=== PATIENT | female | born 1945 | race Caucasian/White ===

== ENCOUNTER 2024-11-16 21:49 | Inpatient (IN) | payer OTHER, SELFPAY ==
[2024-11-16 14:16] VITALS: BP 150/75
--- NOTE | 2024-11-16 14:39 | ED.GENMED ---
ED Provider Triage
<Sammie Gilliam PA-C - Last Filed: 11/16/24 14:45>
-
Patient seen by provider in Triage?: Seen in Triage
79-year-old female pretty healthy, normally with it went to bed feeling okay and then woke up in the middle the night and threw up 3 times, had some shakes and chills and then felt generalized weakness. The family could not get her out of bed this
morning. She is confused which is new for her. She had no falls. Patient says she just does not feel well.
A medical screening examination has been initiated by a qualified medical provider. Based on the assessment performed at this time, it has been determined that an emergent medical condition may exist and the patient has been informed that further
medical evaluation and possible additional diagnostic testing may be needed.
HPI: This is a medical evaluation conducted in person to initiate diagnostic evaluation and provide initial therapeutics. Please see further documentation by the treating clinician.
GENERAL: Alert , in no apparent distress
ENT: No visible abnormalities
LUNGS: No acute respiratory distress
NEUROLOGICAL: Alert and oriented x 2, cranial nerves intact, strength intact, no visual field cut, patient does have some generalized memory issues, seems to pause and think about words before speaking, no dysarthria, some mild global confusion
about why she is here
SKIN: Skin intact. No visible changes.
MUSCULOSKELETAL: Moving extremities normally
PSYCH: Normal and appropriate interaction.
Patient is confused today after waking up and vomiting several times with some chills, family suspected she had a fever, she is very weak. Her neuroexam is nonfocal, I do not believe this is a stroke but more likely infectious cause for her
confusion. Will place patient in for labs, flu, COVID, EKG and head CT and a UA
History of Present Illness
<Sammie Gilliam PA-C - Last Filed: 11/16/24 14:45>
General
Chief Complaint: Cold/Flu/URI Symptoms
Time Seen by Provider: 11/16/24 16:42
<Sujata Islas PA-C - Last Filed: 11/16/24 22:26>
General
Source: patient and family
Exam Limitations: none
History of Present Illness
History of Present Illness:
79yoF with a history of hypertension and PMR presenting with her for evaluation of generalized weakness. Symptoms began in the middle of the night this morning. Patient reports chills and rigors. No reported fevers. She also feels very
weak and has not been able to get out of bed today. She is not eating or drinking much. She believes she has the flu. states she seemed very weak earlier today and was unable to get out her words while due to her symptoms. She also
reports a mild cough as well as abdominal discomfort. She denies any dysuria, shortness of breath, vomiting, diarrhea. No known sick contacts.
Phy Exam
<Sujata Islas PA-C - Last Filed: 11/16/24 22:26>
Physical Exam
Physical Exam:
Ill-appearing and fatigued, non-toxic
General Physical Exam
General Presentation: no apparent distress
General Skin: warm and dry
General Habitus: normal and elderly
General Mental: alert
ENT Exam
ENT Exam: normocephalic
Cardiovascular Exam
Cardiovascular Exam: regular rate/rhythm
Pulmonary Exam
Pulmonary Exam: lungs clear, no respiratory distress, no rales, no crackles, no rhonchi and no wheezing
Gastrointestinal Exam
Gastrointestinal Exam: soft, non distended and other (+Generalized abdominal tenderness. No rebound or guarding. )
Neurological Exam
Neurological Exam: alert
[place] Coma Scale
Eye Opening: Spontaneous
Verbal Response: Oriented
Motor Response: Obeys Commands
GCS Total Score: 15
Skin Exam
Skin Exam: normal color and warm/dry
Psychiatric Exam
Psychiatric Exam: normal mood/affect
Course
<Sammie Gilliam PA-C - Last Filed: 11/16/24 14:45>
Orders/Labs/Results
Orders:
Orders
11/16/24 14:21
Electrocardiogram (*1) Urgent
Reason for Study: Fatigue / Weakness
EKG- Treatment ONCE
11/16/24 14:32
COVID-19 Antigen Urgent
Source: Nasal Swab
Complete Blood Count/With Diff Urgent
Comprehensive Metabolic Panel Urgent
Lipase Urgent
Comment: ADD ON
Influenza A+B Rapid Molecular Urgent
KRISTINE Source: Nasal Swab
Specimen Description:
11/16/24 14:40
CT Head W/o Iv Contrast Urgent
Comment:
Reason For Exam: confusion
11/16/24 Dinner
NPO
Allow oral meds: Yes
Allow clear liquids: No
11/16/24 16:53
Add On- LAB Urgent
Tests Added?: lipase
CT Abd/pelvis W Iv Cont Urgent
Comment:
Reason For Exam: generalized abd pain, chills
0.9% Sodium Chloride 500 ml [Nss] 500 ml IV BOLUS
CR Chest - 2 Views Urgent
Comment:
Reason For Exam: cough
11/16/24 19:10
Lactate Level [Lactic Acid] Urgent
Troponin I Urgent
Blood Culture Q30M
KRISTINE Source: Blood/Venous
Specimen Description:
Blood Culture Q30M
KRISTINE Source: Blood/Venous
Specimen Description:
11/16/24 19:40
Piperacillin/Tazo 4.5 Gram [Zosyn] 4.5 gram in 100 ml IV NOW
11/16/24 19:47
Acetaminophen [Tylenol] 650 mg PO NOW STA
11/16/24 21:07
Admit/Transfer Patient As Directed
Co-Sign Provider:
Level of Care: Inpatient admission
Assign to:: Telemetry
Physician / Group: Wild Christina
Diagnosis: sepsis, mild diverticulitis, TME and acute ambulatory dysfunction
Reason for Telemetry: Arrhythmia
Date to Stop Telemetry: 11/19/24
Time to Stop Telemetry: 11:00
Reason for Hospitalization: sepsis, mild diverticulitis, TME and acute ambulatory dysfunction
Expected length of stay greater than two midnights?: Yes
ELOS- Estimated Length of Stay in days: 3
I certify the patient meets the requirements for IP care: Yes
PRN Pain Medication Management As Directed
May give lesser potent ordered pain med per pt: Yes
preference::
Protocol:: Medication orders for pain may be administered in a
manner that supports deferring to patient preference
when the pt is:
- Requesting an ordered lesser potent pain medication.
Least to most potent pain medications are defined
as: acetaminophen < NSAID < tramadol < opioids
(morphine, oxycodone, hydromorphone).
- Requesting a lesser dose of the same medication IF
ORDERED.
- Requesting a less intrusive route of administration
if both routes are prescribed by the provider (PO <
IV).
11/16/24 21:08
Code Status As Directed
Resuscitation Status: Full Code
11/16/24 21:20
Urinalysis Reflex To Culture Urgent
Date Specimen was Collected: 11/16/24
Time Specimen was Collected: 16:57
11/16/24 22:00
Flush (0.9% Sodium Chloride) [Flush (Nss)] See Dose Instructions IV PER PROTOCOL
11/16/24 22:17
0.9% Sodium Chloride 1000 ml [Nss] 1,000 ml IV 100 mls/hr
Acetaminophen [Tylenol] 650 mg PO Q4HPRN PRN
Gabapentin [Neurontin] 300 mg PO HS
Piperacillin/Tazo 4.5 Gram [Zosyn] 4.5 gram in 100 ml IV Q6H
11/16/24 22:17
Consult Colorectal Surgery [ColoRectal Surgery Consult] Routine
Consulting Provider: Frankie Ryan
Was physician already notified: Yes
Activity As Directed
Activity Level: With Assistance
Pneumatic Compression Sleeves As Directed
Type: Knee high
Vital Signs As Directed
Frequency: Per unit guidelines
Weight As Directed
Frequency: Once
DX Deep Vein Thrombosis Video Routine
11/17/24 06:00
Basic Metabolic Panel IN AM
Complete Blood Count/No Diff IN AM
11/17/24 08:00
Duloxetine Delayed Release [Cymbalta Delayed Release] 30 mg PO DAILY
Ezetimibe [Zetia] 10 mg PO DAILY
Losartan [Cozaar] 100 mg PO DAILY
Metoprolol Xl [Toprol Xl] 50 mg PO DAILY
calcium carbonate-vitamin D3 [Calcium 600 + D(3)] 1 tablet PO DAILY
11/19/24 11:00
DC Protocol for Telemetry ONCE
Abnormal Lab Results
11/16/24
14:32
WBC 16.2 H 10^3/uL
(4.8-10.8)
Abs Immat Gran (auto) 0.1 H 10^3/uL
(0-0.05)
Absolute Neuts (auto) 14.1 H 10^3/uL
(1.4-6.5)
Absolute Lymphs (auto) 0.8 L 10^3/uL
(1.2-3.4)
Absolute Monos (auto) 1.2 H 10^3/uL
(0.1-0.6)
Immature Gran % 0.6 H %
(0-0.5)
Neutrophils % 86.5 H %
(42.2-75.2)
Lymphocytes % 5.2 L %
(20.5-51.1)
Carbon Dioxide 21 L mmol/L
(22-30)
Glucose 119 H mg/dl
(70-99)
AST 69 H U/L
(14-36)
ALT 79 H U/L
(0-35)
11/16/24 14:32
11/16/24 14:32
Vital Signs
Initial and Last Documented VS:
Initial Vital Signs
Temp Pulse Resp BP Pulse Ox
98.5 F 103 18 150/75 98
11/16/24 14:16 11/16/24 14:16 11/16/24 14:16 11/16/24 14:16 11/16/24 14:16
Last Documented Vital Signs
Temp Pulse Resp BP Pulse Ox
101.4 F H 98 28 131/61 97
11/16/24 18:25 11/16/24 17:42 11/16/24 17:42 11/16/24 21:10 11/16/24 17:42
<Sujata Islas PA-C - Last Filed: 11/16/24 22:26>
Orders/Labs/Results
Orders:
Orders
11/16/24 14:21
Electrocardiogram (*1) Urgent
Reason for Study: Fatigue / Weakness
EKG- Treatment ONCE
11/16/24 14:32
COVID-19 Antigen Urgent
Source: Nasal Swab
Complete Blood Count/With Diff Urgent
Comprehensive Metabolic Panel Urgent
Lipase Urgent
Comment: ADD ON
Influenza A+B Rapid Molecular Urgent
KRISTINE Source: Nasal Swab
Specimen Description:
11/16/24 14:40
CT Head W/o Iv Contrast Urgent
Comment:
Reason For Exam: confusion
11/16/24 Dinner
NPO
Allow oral meds: Yes
Allow clear liquids: No
11/16/24 16:53
Add On- LAB Urgent
Tests Added?: lipase
CT Abd/pelvis W Iv Cont Urgent
Comment:
Reason For Exam: generalized abd pain, chills
0.9% Sodium Chloride 500 ml [Nss] 500 ml IV BOLUS
CR Chest - 2 Views Urgent
Comment:
Reason For Exam: cough
11/16/24 19:10
Lactate Level [Lactic Acid] Urgent
Troponin I Urgent
Blood Culture Q30M
KRISTINE Source: Blood/Venous
Specimen Description:
Blood Culture Q30M
KRISTINE Source: Blood/Venous
Specimen Description:
11/16/24 19:40
Piperacillin/Tazo 4.5 Gram [Zosyn] 4.5 gram in 100 ml IV NOW
11/16/24 19:47
Acetaminophen [Tylenol] 650 mg PO NOW STA
11/16/24 21:07
Admit/Transfer Patient As Directed
Co-Sign Provider:
Level of Care: Inpatient admission
Assign to:: Telemetry
Physician / Group: Wild Christina
Diagnosis: sepsis, mild diverticulitis, TME and acute ambulatory dysfunction
Reason for Telemetry: Arrhythmia
Date to Stop Telemetry: 11/19/24
Time to Stop Telemetry: 11:00
Reason for Hospitalization: sepsis, mild diverticulitis, TME and acute ambulatory dysfunction
Expected length of stay greater than two midnights?: Yes
ELOS- Estimated Length of Stay in days: 3
I certify the patient meets the requirements for IP care: Yes
PRN Pain Medication Management As Directed
May give lesser potent ordered pain med per pt: Yes
preference::
Protocol:: Medication orders for pain may be administered in a
manner that supports deferring to patient preference
when the pt is:
- Requesting an ordered lesser potent pain medication.
Least to most potent pain medications are defined
as: acetaminophen < NSAID < tramadol < opioids
(morphine, oxycodone, hydromorphone).
- Requesting a lesser dose of the same medication IF
ORDERED.
- Requesting a less intrusive route of administration
if both routes are prescribed by the provider (PO <
IV).
11/16/24 21:08
Code Status As Directed
Resuscitation Status: Full Code
11/16/24 21:20
Urinalysis Reflex To Culture Urgent
Date Specimen was Collected: 11/16/24
Time Specimen was Collected: 16:57
11/16/24 22:00
Flush (0.9% Sodium Chloride) [Flush (Nss)] See Dose Instructions IV PER PROTOCOL
11/16/24 22:17
0.9% Sodium Chloride 1000 ml [Nss] 1,000 ml IV 100 mls/hr
Acetaminophen [Tylenol] 650 mg PO Q4HPRN PRN
Gabapentin [Neurontin] 300 mg PO HS
Piperacillin/Tazo 4.5 Gram [Zosyn] 4.5 gram in 100 ml IV Q6H
11/16/24 22:17
Consult Colorectal Surgery [ColoRectal Surgery Consult] Routine
Consulting Provider: Frankie Ryan
Was physician already notified: Yes
Activity As Directed
Activity Level: With Assistance
Pneumatic Compression Sleeves As Directed
Type: Knee high
Vital Signs As Directed
Frequency: Per unit guidelines
Weight As Directed
Frequency: Once
DX Deep Vein Thrombosis Video Routine
11/17/24 06:00
Basic Metabolic Panel IN AM
Complete Blood Count/No Diff IN AM
11/17/24 08:00
Duloxetine Delayed Release [Cymbalta Delayed Release] 30 mg PO DAILY
Ezetimibe [Zetia] 10 mg PO DAILY
Losartan [Cozaar] 100 mg PO DAILY
Metoprolol Xl [Toprol Xl] 50 mg PO DAILY
calcium carbonate-vitamin D3 [Calcium 600 + D(3)] 1 tablet PO DAILY
11/19/24 11:00
DC Protocol for Telemetry ONCE
Abnormal Lab Results
11/16/24
14:32
WBC 16.2 H 10^3/uL
(4.8-10.8)
Abs Immat Gran (auto) 0.1 H 10^3/uL
(0-0.05)
Absolute Neuts (auto) 14.1 H 10^3/uL
(1.4-6.5)
Absolute Lymphs (auto) 0.8 L 10^3/uL
(1.2-3.4)
Absolute Monos (auto) 1.2 H 10^3/uL
(0.1-0.6)
Immature Gran % 0.6 H %
(0-0.5)
Neutrophils % 86.5 H %
(42.2-75.2)
Lymphocytes % 5.2 L %
(20.5-51.1)
Carbon Dioxide 21 L mmol/L
(22-30)
Glucose 119 H mg/dl
(70-99)
AST 69 H U/L
(14-36)
ALT 79 H U/L
(0-35)
11/16/24 14:32
11/16/24 14:32
Vital Signs
Initial and Last Documented VS:
Initial Vital Signs
Temp Pulse Resp BP Pulse Ox
98.5 F 103 18 150/75 98
11/16/24 14:16 11/16/24 14:16 11/16/24 14:16 11/16/24 14:16 11/16/24 14:16
Last Documented Vital Signs
Temp Pulse Resp BP Pulse Ox
101.4 F H 98 28 131/61 97
11/16/24 18:25 11/16/24 17:42 11/16/24 17:42 11/16/24 21:10 11/16/24 17:42
<Sujata Islas PA-C - Last Filed: 11/16/24 22:26>
MDM/Problems Addressed
Differential Diagnosis Includes:
79yoF here with chills, rigors, and weakness that began early this morning. Feels like she has the flu. Hx of PMR on immunosuppressants. Temp 98.5 in triage. HR 103. She appears fatigued but is non-toxic. There is generalized abdominal tenderness
noted. Differential diagnosis includes but is not limited to: viral illness, appendicitis, diverticulitis, UTI, pneumonia, bacteremia
Initial ED plan: Basic labs and viral testing obtained in triage. Leukocytosis noted with a white count of 16. COVID/flu swab negative. Will check lactate, blood cultures, UA, chest x-ray, and CT abdomen. IV fluid bolus ordered.
<Sujata Islas PA-C - Last Filed: 11/16/24 22:26>
*EKG
Interpreted by ED Provider?: Yes
EKG Intrepretation Date: 11/16/24
Heart Rate: 101
Rate: tachycardiac
Rhythm: sinus
[place]: normal axis
Interval: normal interval
QRS Pattern: normal QRS
Ischemia: no ischemia
*Critical Care Note
Total Time (30-74mins, 75-104mins- exclusive of procedures): Not Applicable
<Sujata Islas PA-C - Last Filed: 11/16/24 22:26>
Update Note
Update Note:
Lactate within normal limits. CT abdomen shows mild acute diverticulitis. CXR is clear. UA still pending. Patient spiked a fever of 101.4 during ED stay. Patient meeting sepsis criteria. IV Zosyn ordered and patient admitted for further
management.
ED Attending Note
<Sammie Gilliam PA-C - Last Filed: 11/16/24 14:45>
-
Portions of this chart may have been created with voice recognition software.� Occasional wrong word or��sound alike� substitutions may have occurred due to the inherent limitations of voice recognition software.
Discharge Plan
Departure
Patient Disposition: Admit
Date of Disposition: 11/16/24
Time of Disposition: 19:48
Presentation/result/management discussed w/ accepting MD/DO: Hospitalist
Discharge Problem:
Sepsis, Acute diverticulitis
Interventions
Interventions:
*Risk Screen - Suicide Last Done: 11/16/24 14:16
*Neglect/Abuse Screening Last Done: 11/16/24 14:16
ED- Fall Risk Assessment Last Done: 11/16/24 16:35
ED- Pulmonary Assessment Last Done: 11/16/24 16:35
[2024-11-16 14:52] LABS: % Basophils 0.2 % (0-2); % Eosinophils 0.3 % (0-6); % Immature Granulocytes 0.6 % (0-0.5); % Lymphocytes 5.2 % (20.5-51.1); % Monocytes 7.2 % (1.7-9.3); % Neutrophils 86.5 % (42.2-75.2); Absolute Eosinophils 0.1 10^3/uL (0-0.7); Absolute Immature Granulocytes 0.1 10^3/uL (0-0.05); Absolute Lymphocytes 0.8 10^3/uL (1.2-3.4); Absolute Monocytes 1.2 10^3/uL (0.1-0.6); Absolute Neutrophils 14.1 10^3/uL (1.4-6.5); Hematocrit 41.4 % (37.0-47.0); Hemoglobin 13.7 g/dL (12.0-16.0); Mean Corp Hgb Conc. 33.1 g/dL (33.0-37.0); Mean Corpuscular Hgb 27.8 pg (27.0-31.0); Mean Corpuscular Volume 84.1 fL (81.0-99.0); Mean Platelet Volume 9.4 fL (7.4-10.4); Nucleated Red Blood Cells % 0 %; Platelet Count 254 10^3/uL (130-400); Red Blood Cell Count 4.92 10^6/uL (4.20-5.40); Red Cell Dist. Width 13.6 % (11.5-14.5); White Blood Cell Count 16.2 10^3/uL (4.8-10.8)
[2024-11-16 15:03] LABS: ALT (SGPT) 79 U/L (0-35); AST (SGOT) 69 U/L (14-36); Albumin 4.2 g/dl (3.5-5.0); Alkaline Phosphatase 69 U/L (38-126); Blood Urea Nitrogen 16 mg/dl (7-17); Calcium 8.9 mg/dl (8.4-10.2); Carbon Dioxide 21 mmol/L (22-30); Chloride 107 mmol/L (98-107); Glucose 119 mg/dl (70-99); Sodium 138 mmol/L (135-145); Total Bilirubin 1.2 mg/dl (0.2-1.3); Total Protein 7.4 g/dl (6.3-8.2); eGFR > 60.00
[2024-11-16 15:21] LABS: COVID-19 Antigen Negative (Negative)
[2024-11-16 16:33] VITALS: BP 126/55
[2024-11-16 16:35] VITALS: BMI 26.2
[2024-11-16 17:00] VITALS: BP 116/57
[2024-11-16] MEDS: NSS 500 IV (17:01)
[2024-11-16 17:35] LABS: Lipase 146 U/L (23-300)
[2024-11-16 19:39] LABS: Lactic Acid 1.4 mmol/L (0.7-2.0)
[2024-11-16] MEDS: ZOSYN 100 IV (19:49)
[2024-11-16 19:52] LABS: Troponin I < 0.012 ng/ml
[2024-11-16] MEDS: TYLENOL 650 MG PO (19:52)
--- NOTE | 2024-11-16 20:18 | HPS.HSE ---
Family Physician
-
Family Physician:
Chief Complaint
-
fever, chills and generalized weakness
History of Present Illness
Patient is a 79-year-old female with past medical history significant for hypertension, hyperlipidemia and polymyalgia rheumatica who presented to [facility] ED for evaluation of fever, chills and generalized weakness. Patient reports she
was at baseline yesterday and noticed fever and chills overnight with weakness and confusion when she woke this morning. She denies dizziness, headaches, falls, cough, shortness of breath, chest pain, nausea, vomiting, constipation, diarrhea or
urinary symptoms. Patient with memory issues and has a hard time remembering, ED notes indicate patient had 3 episodes of emesis last night and family unable to get out of bed this morning. They noted that confusion is new to patient.
Medical History
Past Medical History
Past Medical History: Reports Other
Additional Past Medical History:
hypertension
hyperlipidemia
polymyalgia rheumatica
mitral regurgitation
Past Surgical History: Reports Other
Additional Past Surgical History:
lumbar laminectomy 10/07
bilateral cataract extractions
cholecystectomy 11/2023
Social History
Tobacco: Non-smoker
Alcohol: None
Drug: None
Personal:
Living: With Family
Employment: Retired
Family History
Family History: Not pertinent
Allergies / Home Medications
Allergies reflects when Allergies were last updated in [facility].
Home Medications with original date entered in [facility]
Allergy/Medication List:
Allergies
Allergy/AdvReac Type Severity Reaction Status Date / Time
.can't remember Allergy Unknown Uncoded 11/16/24 14:20
Home Medications
azathioprine 50 mg tablet 50 mg PO DAILY 11/16/24
calcium 600 mg (as carbonate)-vitamin D3 10 mcg (400 unit) tablet (Calcium 600 + D(3)) 1 tab PO DAILY 11/16/24
denosumab 60 mg/mL subcutaneous syringe (Prolia) 60 mg SC [id number] 11/16/24
duloxetine 30 mg capsule,delayed release 30 mg PO DAILY 11/16/24
ezetimibe 10 mg tablet 10 mg PO DAILY 11/16/24
gabapentin 300 mg capsule 300 mg PO HS 11/16/24
losartan 100 mg tablet 100 mg PO DAILY 11/16/24
metoprolol succinate 50 mg tablet,extended release 24 hr 50 mg PO DAILY 11/16/24
prednisone 1 mg tablet 3 mg PO DAILY 11/16/24
Review of Systems
-
History Source: Patient
Constitutional: Reports Fever and Chills
EENT: Reports No Symptoms
Respiratory: Reports No Symptoms
Cardiac: Reports No Symptoms
Abdomen/GI: Reports No Symptoms
: Reports No Symptoms
Musculoskeletal: Reports No Symptoms
Skin: Reports No Symptoms
Neurological: Reports No Symptoms
Endocrine: Reports No Symptoms
Hematologic/Lymphatic: Reports No Symptoms
Psych: Reports No Symptoms
Physical Exam
Vital Signs
Vital Signs
Temp Pulse Resp BP Pulse Ox
101.4 F H 100 21 116/57 97
11/16/24 18:25 11/16/24 17:30 11/16/24 17:30 11/16/24 17:00 11/16/24 17:30
Physical Exam
General: Well Developed, Well Nourished, No Apparent Distress, Comfortable and Conversant
HEENT: NormoCephalic, Moist mucous membranes, Atraumatic, [place] Conjunctivae, Nose Appears Normal and Ears Appear Normal
Respiratory: Clear and Non Labored Respirations
Cardiac: S1/S2, Regular Rhythm and Murmur; No Rub or Gallop
Breast: Deferred by me
GI: Soft, Non Tender, Non Distended and Normal Bowel Sounds; No Organomegaly
Rectal: Deferred by Provider
Genito-urinary: Deferred by me
Musculoskeletal: No Clubbing, No Cyanosis and No Edema
Skin: Warm and IV/Catheter Site; No Rash
Neuro: Awake, Alert, Nonfocal/grossly intact and Other (observed mild memory issues, pauses before answering and often says she does not remember, mild confusion despite orientation x3)
Psych: Calm and Intact Judgment/Insight
Laboratory Results
-
11/16/24 14:32
11/16/24 14:32
Laboratory Results
Lactic Acid 1.4 mmol/L (0.7-2.0) 11/16/24 19:10
Total Bilirubin 1.2 mg/dl (0.2-1.3) 11/16/24 14:32
AST 69 U/L (14-36) H 11/16/24 14:32
ALT 79 U/L (0-35) H 11/16/24 14:32
Alkaline Phosphatase 69 U/L (38-126) 11/16/24 14:32
Troponin I < 0.012 ng/ml 11/16/24 19:10
Lipase 146 U/L (23-300) 11/16/24 14:32
Data Reviewed
-
Diagnostic Radiology: Report Reviewed by me (CXR: No acute cardiopulmonary process.)
CT Scan: Report Reviewed by me (Abd/Pel: Mild acute sigmoid diverticulitis. No CT evidence for perforation or pericolonic abscess.; Head: No acute intracranial abnormality.)
Medical Tests (Nuc Med, Echo, EKG etc): Report Reviewed by me (EKG: SINUS TACHYCARDIA)
Lab Data: Labs Reviewed by me (WBC 16.2, )
Impression/Plan
-
IMPRESSION/PLAN:
#sepsis 2/2 mild diverticulitis
#associated TME and acute ambulatory dysfunction
WBC 16.2, Lactic 1.4
Covid: negative
Influenza: negative
CXR: No acute cardiopulmonary process.
Head CT: No acute intracranial abnormality.
Abd/Pelvis CT: Mild acute sigmoid diverticulitis. No CT evidence for perforation or pericolonic abscess.
EKG: SINUS TACHYCARDIA
- Admit to telemetry
- IV zosyn
- NPO
- IVF
- Consult Colorectal Surgery
#essential hypertension
- continue losartan and metoprolol
#hyperlipidemia
- continue ezetimibe
#polymyalgia rheumatica
- hold azathioprine
- continue prednisone to IV equivalent with increase for increased stress
#mitral regurgitation
ECHO (05/05/2023): 1. Mild left atrial enlargement.
2. Posterior mitral valve leaflet prolapse with at least moderate eccentric mitral regurgitation
3. Normal left and right ventricular systolic function
4. Normal mildly elevated right ventricular systolic pressure.
#Hx lumbar laminectomy
- continue gabapentin and duloxetine
Code status: full code
DVT prophylaxis: SCDs
--- NOTE | 2024-11-16 20:35 | W.PN.UPDATE ---
Update Note
Progress Note Update
This note serves as an addendum to the H&P by assembler [employer] AZIZA
Pebbles Sabillon
HPI
79F HX PMR on chronic immunodepressants( AZT and chr PO prednisone ) HTN, chr LBP s/p back surgery on Gabapentin seen at ER:
- reports woke up in the middle the night and vomited 3 times
- associated with chills & rigors and then felt generalized weakness.
- The family could not get her out of bed this morning.
- She is confused which is new for her.
- Denied falls
PHX; see above
Vital Signs
Temp Pulse Resp BP Pulse Ox
101.4 F H 100 21 116/57 97
11/16/24 18:25 11/16/24 17:30 11/16/24 17:30 11/16/24 17:00 11/16/24 17:30
PE
Gen: not toxic looking
HEENT: anicteric
Neck: supple
Lungs: CTA
Cor: RRR . No murmur
Abdomen: soft , tender abdomen. No guarding
COMPUTER NETWORKING INSTRUCTOR: AAO3
MS: no edema
Psych: nl affect and mood
Laboratory Tests
11/16/24 11/16/24
14:32 19:10
WBC 16.2 H
Carbon Dioxide 21 L
Creatinine 0.7
eGFR > 60.00
AST 69 H
ALT 79 H
Troponin I < 0.012
SARS-CoV-2 Antigen Negative
CXR: No acute cardiopulmonary process
CT AP W IV contrast
- Mild acute sigmoid diverticulitis.
- No CT evidence for perforation or pericolonic abscess.
CT Head W/o Iv Contrast
- No acute intracranial abnormality.
ASSESSMENT & PLAN
Sepsis with presumed due to mild diverticulitis
Chills & rigors evaluate for bacteremia
Associated with TME , acute ambulatory dysfunction due to weakness
- Fever 101.4, WBC 16, lactate normal
- COVID/flu negative
- Pending UA
- NEG CXR clear
- CT abdomen shows mild diverticulitis
- BCx sent
- Agree with empiric Zosyn
- NPO except meds and IVF
- CRS consult
HX PMR on Immunodepressants( AZT and chr PO prednisone 3 mg daily )
- Hold AZT
- c/w equivalent dose for PO prednisone 3mg daily = IV Hydrocortisone 12mg but will give more IV HC 25 mg daily for additional stress
Benign HTN
-/w Losartan & Metoprolol
HLD
- on Ezetimibe
HX chr LBP s/p back surgery on Gabapentin and Duloxetine
DVT Px: SCD
Full code
IP TLM
[2024-11-16 21:10] VITALS: BP 131/61
[2024-11-16 22:26] VITALS: BP 141/68; BMI 25.4
[2024-11-16] MEDS: NSS 1000 IV (22:37)
[2024-11-16] MEDS: NEURONTIN 300 MG PO (22:37)
[2024-11-17] MEDS: ZOSYN 100 IV ×4 (02:00→20:25)
[2024-11-17 03:45] VITALS: BP 140/63
[2024-11-17 07:30] VITALS: BP 136/62
[2024-11-17 07:49] LABS: Hematocrit 40.3 % (37.0-47.0); Hemoglobin 12.7 g/dL (12.0-16.0); Mean Corp Hgb Conc. 31.5 g/dL (33.0-37.0); Mean Corpuscular Hgb 27.4 pg (27.0-31.0); Mean Corpuscular Volume 86.9 fL (81.0-99.0); Mean Platelet Volume 9.5 fL (7.4-10.4); Platelet Count 213 10^3/uL (130-400); Red Blood Cell Count 4.64 10^6/uL (4.20-5.40); Red Cell Dist. Width 13.7 % (11.5-14.5); White Blood Cell Count 12.5 10^3/uL (4.8-10.8)
[2024-11-17 08:23] LABS: Blood Urea Nitrogen 14 mg/dl (7-17); Calcium 7.7 mg/dl (8.4-10.2); Carbon Dioxide 21 mmol/L (22-30); Chloride 108 mmol/L (98-107); Estimated Creatinine Clearance 47 ml/min; Glucose 88 mg/dl (70-99); Potassium 3.8 mmol/L (3.5-5.1); Sodium 137 mmol/L (135-145); eGFR > 60.00
[2024-11-17] MEDS: CYMBALTA DELAYED RELEASE 30 MG PO (08:29)
[2024-11-17] MEDS: ZETIA 10 MG PO (08:29)
[2024-11-17] MEDS: OSCAL 500 + D 500 MG PO (08:29)
[2024-11-17] MEDS: COZAAR 100 MG PO (08:31)
[2024-11-17] MEDS: TOPROL XL 50 MG PO (08:31)
[2024-11-17 09:19] LABS: ALT (SGPT) 61 U/L (0-35); AST (SGOT) 46 U/L (14-36); Albumin 3.2 g/dl (3.5-5.0); Alkaline Phosphatase 60 U/L (38-126); Direct Bilirubin 0.3 mg/dl (0.0-0.4); Total Bilirubin 1.5 mg/dl (0.2-1.3)
[2024-11-17] MEDS: NSS 1000 IV ×2 (09:53→20:24)
--- NOTE | 2024-11-17 10:45 | CON.CRS ---
Consultation
-
Date/Time Consultation Requested: 11/16/2024, 22:17
Date/Time Consultation Performed: 11/17/2024, 08:30
Requesting Provider: Pebbles Sabillon
Performing Provider: Frankie Ryan MD
Reason for Consultation: diverticulitis
Medical History
-
Chief Complaint: vomiting/confusion
History of Present Illness:
79-year-old female with a past medical history of polymyalgia rheumatica, hypertension, and hyperlipidemia presents to [facility] complaining of diarrhea, vomiting, and confusion. She developed fevers and chills two nights ago and weakness
and confusion. This has never happened to her before. Per ER note, the family had noticed her vomit 3 times but the patient does not recall. The patient states she feels much improved today. On arrival to the ER her WBC was 16.2. Today is 12.5.
She had a fever of 101.4. CT of the abdomen and pelvis shows mild acute sigmoid diverticulitis. The patient states that she has never had diverticulitis before. She denies a family history of rectal or colon cancer. Her last colonoscopy was
years ago and there were polyps. She is not sure the name of the practice but it was somewhere near [place]. She is due again in April. Given the findings above, we have been consulted for further surgical opinion.
Past Medical History
Past Medical History: HTN, Hypercholesterolemia and Other (polymyalgia rheumatica, mitral regurgitation )
Past Surgical History: Other (lumbar laminectomy 10/07, bilateral cataract extractions, cholecystectomy 11/2023 )
Social History
Tobacco: Non-Smoker
Alcohol: None
Drug: None
Family History
Family History: Reviewed & Not Pertinent
Allergies / Home Medications
Allergy/AdvReac Type Severity Reaction Status Date / Time
atorvastatin Allergy LIVER Verified 11/16/24 22:23
FUNCTIONS
ABNORMAL
quinine Allergy Unknown Verified 11/16/24 22:23
�Medication �Instructions �Recorded �Confirmed �Type
azathioprine 50 mg tablet 50 mg PO DAILY polymyalgia 11/16/24 11/16/24 History
rheumatica
calcium 600 mg (as 1 tab PO DAILY Supplement 11/16/24 11/16/24 History
carbonate)-vitamin D3 10 mcg (400
unit) tablet (Calcium 600 + D(3))
denosumab 60 mg/mL subcutaneous 60 mg SC [id number] polymyalgia 11/16/24 11/16/24 History
syringe (Prolia) rheumatica
duloxetine 30 mg capsule,delayed 30 mg PO DAILY polymyalgia 11/16/24 11/16/24 History
release rheumatica
ezetimibe 10 mg tablet 10 mg PO DAILY High Cholesterol 11/16/24 11/16/24 History
gabapentin 300 mg capsule 300 mg PO HS polymyalgia rheumatica 11/16/24 11/16/24 History
losartan 100 mg tablet 100 mg PO DAILY Blood Pressure 11/16/24 11/16/24 History
metoprolol succinate 50 mg 50 mg PO DAILY Blood Pressure 11/16/24 11/16/24 History
tablet,extended release 24 hr
prednisone 1 mg tablet 3 mg PO DAILY polymyalgia 11/16/24 11/16/24 History
rheumatica
Review of Systems
-
History Source: Patient
Constitutional: Fever, Fatigue and Chills
Abdomen/GI: Vomiting
A 10 point review of systems was completed, and was negative except as per HPI.
Physical Exam
Vital Signs
Temp 97.6 F 11/17/24 07:30
Pulse 73 11/17/24 08:31
Resp Rate 18 11/17/24 07:30
Blood pressure 114/75 11/17/24 08:31
SaO2 97 11/17/24 10:00
11/16/24 11/17/24 11/18/24
06:59 06:59 06:59
Actual Weight 62.851 kg
Body Mass Index (BMI) 25.4
Lab Results / Allergies
11/17/24 07:08
11/17/24 07:08
WBC 12.5 10^3/uL (4.8-10.8) H 11/17/24 07:08
Hgb 12.7 g/dL (12.0-16.0) 11/17/24 07:08
Hct 40.3 % (37.0-47.0) 11/17/24 07:08
Plt Count 213 10^3/uL (130-400) 11/17/24 07:08
Abs Immat Gran (auto) 0.1 10^3/uL (0-0.05) H 11/16/24 14:32
Neutrophils % 86.5 % (42.2-75.2) H 11/16/24 14:32
Allergy/AdvReac Type Severity Reaction Status Date / Time
atorvastatin Allergy LIVER Verified 11/16/24 22:23
FUNCTIONS
ABNORMAL
quinine Allergy Unknown Verified 11/16/24 22:23
Physical Exam
General: Well Developed, Well Nourished and No Apparent Distress
GI: Soft, Non Distended and Tender (LLQ - mild)
Skin: Warm and Dry
Neuro: AO x 3
Psych: Calm
Data Reviewed
-
CT Scan: Image Personally Visualized and interpreted, Report Reviewed by me and Discussed with Patient
Labs: Labs Reviewed by me, Discussed with Physician and Discussed with Patient
Old Records: Reviewed
Assessment / Plan
-
Assessment: 79-year-old female with first attack of sigmoid diverticulitis, uncomplicated
Plan:
-Advance diet to full liquids. Recommend advance to low reside if tolerating fulls today.
-Continue IV fluids
-Due for scope in April and patient will follow-up with her outpatient GI doctor
-No plans for surgery at this time. Will sign off. Please contact us if surgical issues arise.
[2024-11-17 11:03] VITALS: BP 131/88
[2024-11-17] MEDS: ZOFRAN 4 MG IV (12:09)
--- NOTE | 2024-11-17 12:16 | W.PN.HOSP.TC ---
Today's Communication/Plan
-
Monitor vital signs see plan
Still with abdominal symptoms, maintain n.p.o.
Continue with fluids
Continue antibiotics
Pain control
Assessment / Plan
Assessment / Plan
General: Well Developed, Well Nourished, No Apparent Distress, Comfortable and Conversant
HEENT: NormoCephalic, Moist mucous membranes, Atraumatic, Roma Conjunctivae
Respiratory: Clear and Non Labored Respirations
Cardiac: S1/S2, Regular Rhythm and Murmur; No Rub or Gallop
GI: Soft, Non Tender, Non Distended and Normal Bowel Sounds
Musculoskeletal: No Edema
Neuro: Awake, Alert
Psych: Calm and Intact Judgment/Insight
sepsis 2/2 acute diverticulitis
#associated TME and acute ambulatory dysfunction
Abd/Pelvis CT: Mild acute sigmoid diverticulitis. No CT evidence for perforation or pericolonic abscess.
Continue with IV Zosyn
Maintain n.p.o.
IVF
Colorectal surgery following
Follow fever curve
Blood culture pending
essential hypertension
- continue losartan and metoprolol
hyperlipidemia
- continue ezetimibe
polymyalgia rheumatica
- azathioprine
On low-dose p.o. prednisone
Mild LFT elevation
Monitor
mitral regurgitation
ECHO (05/05/2023): 1. Mild left atrial enlargement.
2. Posterior mitral valve leaflet prolapse with at least moderate eccentric mitral regurgitation
3. Normal left and right ventricular systolic function
4. Normal mildly elevated right ventricular systolic pressure.
Hx lumbar laminectomy
- continue gabapentin and duloxetine
Code status: full code
DVT prophylaxis: SCDs
Anticipated Discharge: > 48 hours
Subjective/Interval History
-
Date of Service: November 17, 2024
has pain and nausea
Objective Data
-
Labs:
Laboratory Results
11/17/24 11/17/24
07:08 08:30
WBC 12.5 H
Hgb 12.7
Hct 40.3
Plt Count 213
Sodium 137
Potassium 3.8
Chloride 108 H
Carbon Dioxide 21 L
BUN 14
Creatinine 0.8
Glucose 88
Calcium 7.7 L
Total Bilirubin 1.5 H Cancelled
AST 46 H Cancelled
ALT 61 H Cancelled
Alkaline Phosphatase 60 Cancelled
Vital Signs:
Vital Signs
Temp Pulse Resp BP Pulse Ox
97.7 F 90 18 131/88 97
11/17/24 11:03 11/17/24 11:03 11/17/24 11:03 11/17/24 11:03 11/17/24 11:03
[2024-11-17 15:13] VITALS: BP 131/63
--- NOTE | 2024-11-17 16:47 | CM ---
Alert awake oriented patient who lives with her Dalton who lives in a 1 story home with 1 steps to enter. She is independent in all activities of daily living.Offered VN she declined.
No adaptive devices
Never had VN/SNF
Pharmacy [facility]
PCP Dr Rosales
PLAN Home no needs
[2024-11-17 19:32] VITALS: BP 142/72
[2024-11-17] MEDS: NEURONTIN 300 MG PO (21:15)
[2024-11-17 23:41] VITALS: BP 130/72
[2024-11-18] VITALS (8 sets, daily range): BP systolic 114–136; BP diastolic 52–70; PULSE 68; O2SAT 95
[2024-11-18] MEDS: ZOSYN 100 IV ×4 (02:06→21:07)
[2024-11-18] MEDS: NSS 1000 IV (05:57)
[2024-11-18 06:18] LABS: % Basophils 0.1 % (0-2); % Eosinophils 1.3 % (0-6); % Immature Granulocytes 0.5 % (0-0.5); % Lymphocytes 9.1 % (20.5-51.1); % Monocytes 7.8 % (1.7-9.3); % Neutrophils 81.2 % (42.2-75.2); Absolute Eosinophils 0.1 10^3/uL (0-0.7); Absolute Immature Granulocytes 0.1 10^3/uL (0-0.05); Absolute Lymphocytes 0.9 10^3/uL (1.2-3.4); Absolute Monocytes 0.8 10^3/uL (0.1-0.6); Absolute Neutrophils 8.2 10^3/uL (1.4-6.5); Hematocrit 37.8 % (37.0-47.0); Hemoglobin 12.1 g/dL (12.0-16.0); Mean Corpuscular Hgb 27.3 pg (27.0-31.0); Mean Corpuscular Volume 85.3 fL (81.0-99.0); Mean Platelet Volume 9.5 fL (7.4-10.4); Nucleated Red Blood Cells % 0 %; Platelet Count 233 10^3/uL (130-400); Red Blood Cell Count 4.43 10^6/uL (4.20-5.40); Red Cell Dist. Width 13.4 % (11.5-14.5); White Blood Cell Count 10.1 10^3/uL (4.8-10.8)
[2024-11-18 06:44] LABS: ALT (SGPT) 52 U/L (0-35); AST (SGOT) 39 U/L (14-36); Albumin 3.2 g/dl (3.5-5.0); Alkaline Phosphatase 59 U/L (38-126); Blood Urea Nitrogen 12 mg/dl (7-17); Calcium 7.5 mg/dl (8.4-10.2); Carbon Dioxide 14 mmol/L (22-30); Chloride 113 mmol/L (98-107); Estimated Creatinine Clearance 53 ml/min; Glucose 83 mg/dl (70-99); Potassium 3.7 mmol/L (3.5-5.1); Sodium 139 mmol/L (135-145); Total Bilirubin 0.9 mg/dl (0.2-1.3); Total Protein 6.1 g/dl (6.3-8.2); eGFR > 60.00
--- NOTE | 2024-11-18 09:44 | W.PN.HOSP.TC ---
Today's Communication/Plan
-
Monitor vitals
See plan
Trial of clears, if tolerates then will advance to full liquids
Change IV fluids to bicarb drip
Repeat BMP later today
Continue with antibiotics
Assessment / Plan
Assessment / Plan
General: Well Developed, Well Nourished, No Apparent Distress, Comfortable and Conversant
HEENT: NormoCephalic, Moist mucous membranes, Atraumatic, Mariano Colon Conjunctivae
Respiratory: Clear and Non Labored Respirations
Cardiac: S1/S2, Regular Rhythm and Murmur; No Rub or Gallop
GI: Soft, Non Tender, Non Distended and Normal Bowel Sounds
Musculoskeletal: No Edema
Neuro: Awake, Alert
Psych: Calm and Intact Judgment/Insight
sepsis 2/2 acute diverticulitis
#associated TME and acute ambulatory dysfunction
Abd/Pelvis CT: Mild acute sigmoid diverticulitis. No CT evidence for perforation or pericolonic abscess.
Continue with IV Zosyn
Feeling little better, trial of clears
IVF, changed to bicarb drip
Colorectal surgery following
Follow fever curve
Blood culture NGTD
Metabolic acidosis
Switch normal saline to bicarb drip
Repeat BMP later today
essential hypertension
- continue losartan and metoprolol
hyperlipidemia
- continue ezetimibe
polymyalgia rheumatica
- hold azathioprine
On low-dose p.o. prednisone
Mild LFT elevation
Monitor
mitral regurgitation
ECHO (05/05/2023): 1. Mild left atrial enlargement.
2. Posterior mitral valve leaflet prolapse with at least moderate eccentric mitral regurgitation
3. Normal left and right ventricular systolic function
4. Normal mildly elevated right ventricular systolic pressure.
Hx lumbar laminectomy
- continue gabapentin and duloxetine
Code status: full code
DVT prophylaxis: SCDs, Lovenox
I spent a total of 52 minutes with the patient or on the floor. More than 50% of this time involved counseling and coordination of care.
Anticipated Discharge: 24 - 48 hours
Subjective/Interval History
-
Date of Service: November 18, 2024
Feeling little better
Objective Data
-
Labs:
Laboratory Results
11/18/24 11/18/24
05:34 16:00
WBC 10.1
Hgb 12.1
Hct 37.8
Plt Count 233
Sodium 139 Pending
Potassium 3.7 Pending
Chloride 113 H Pending
Carbon Dioxide 14 L* Pending
BUN 12 Pending
Creatinine 0.7 Pending
Glucose 83 Pending
Calcium 7.5 L Pending
Total Bilirubin 0.9
AST 39 H
ALT 52 H
Alkaline Phosphatase 59
Vital Signs:
Vital Signs
Temp Pulse Resp BP Pulse Ox
98.0 F 78 16 129/67 96
11/18/24 07:05 11/18/24 07:05 11/18/24 07:05 11/18/24 07:05 11/18/24 07:05
I&O
11/17/24 11/18/24 11/19/24
06:59 06:59 06:59
Intake Total 1200 / 1200
Balance 1200 / 1200
[2024-11-18] MEDS: CYMBALTA DELAYED RELEASE 30 MG PO (09:45)
[2024-11-18] MEDS: COZAAR 100 MG PO (09:45)
[2024-11-18] MEDS: TOPROL XL 50 MG PO (09:46)
[2024-11-18] MEDS: SODIUM BICARBONATE 1150 MEQ IV (09:46)
[2024-11-18] MEDS: OSCAL 500 + D 500 MG PO (09:46)
[2024-11-18] MEDS: ZETIA 10 MG PO (09:46)
[2024-11-18] MEDS: DELTASONE 3 MG PO (09:48)
[2024-11-18] MEDS: TYLENOL 650 MG PO (09:48)
--- NOTE | 2024-11-18 14:44 | PTCARENOTE ---
Pt reported that she had 2 loose BMs earlier today. No abdominal pain, no N/V. Made Dr. Sierra aware and made sure that he didn't want a stool sent to r/o C.Diff. Dr. Sierra indicated to hold off for now and monitor.
[2024-11-18 15:58] LABS: Blood Urea Nitrogen 11 mg/dl (7-17); Calcium 7.3 mg/dl (8.4-10.2); Carbon Dioxide 21 mmol/L (22-30); Chloride 106 mmol/L (98-107); Estimated Creatinine Clearance 62 ml/min; Glucose 213 mg/dl (70-99); Potassium 3.6 mmol/L (3.5-5.1); Sodium 135 mmol/L (135-145); eGFR > 60.00
[2024-11-18] MEDS: LOVENOX 40 MG SC (18:49)
[2024-11-18] MEDS: NEURONTIN 300 MG PO (21:07)
[2024-11-19] MEDS: ZOSYN 100 IV ×4 (02:24→20:40)
[2024-11-19 03:16] VITALS: BP 110/52
[2024-11-19 06:38] LABS: % Basophils 0.2 % (0-2); % Eosinophils 2.3 % (0-6); % Immature Granulocytes 0.3 % (0-0.5); % Lymphocytes 12.7 % (20.5-51.1); % Monocytes 8.8 % (1.7-9.3); % Neutrophils 75.7 % (42.2-75.2); Absolute Eosinophils 0.2 10^3/uL (0-0.7); Absolute Lymphocytes 1.2 10^3/uL (1.2-3.4); Absolute Monocytes 0.8 10^3/uL (0.1-0.6); Hemoglobin 11.9 g/dL (12.0-16.0); Mean Corp Hgb Conc. 33.1 g/dL (33.0-37.0); Mean Corpuscular Hgb 27.5 pg (27.0-31.0); Mean Corpuscular Volume 83.3 fL (81.0-99.0); Mean Platelet Volume 9.9 fL (7.4-10.4); Nucleated Red Blood Cells % 0 %; Platelet Count 230 10^3/uL (130-400); Red Blood Cell Count 4.32 10^6/uL (4.20-5.40); White Blood Cell Count 9.2 10^3/uL (4.8-10.8)
[2024-11-19 06:51] LABS: ALT (SGPT) 42 U/L (0-35); AST (SGOT) 33 U/L (14-36); Alkaline Phosphatase 53 U/L (38-126); Blood Urea Nitrogen 8 mg/dl (7-17); Calcium 7.6 mg/dl (8.4-10.2); Carbon Dioxide 23 mmol/L (22-30); Chloride 108 mmol/L (98-107); Estimated Creatinine Clearance 62 ml/min; Glucose 88 mg/dl (70-99); Potassium 3.3 mmol/L (3.5-5.1); Sodium 136 mmol/L (135-145); Total Bilirubin 0.6 mg/dl (0.2-1.3); Total Protein 5.7 g/dl (6.3-8.2); eGFR > 60.00
[2024-11-19] MEDS: ZETIA 10 MG PO (08:05)
[2024-11-19] MEDS: OSCAL 500 + D 500 MG PO (08:05)
[2024-11-19] MEDS: CYMBALTA DELAYED RELEASE 30 MG PO (08:05)
[2024-11-19] MEDS: COZAAR 100 MG PO (08:05)
[2024-11-19] MEDS: DELTASONE 3 MG PO (08:05)
[2024-11-19] MEDS: TOPROL XL 50 MG PO (08:05)
[2024-11-19 08:06] VITALS: BP 127/75
[2024-11-19] MEDS: FLUSH (NSS) 2 FLUSH IV (08:06)
[2024-11-19] MEDS: KCL 40 MEQ PO (10:09)
--- NOTE | 2024-11-19 11:22 | W.PN.HOSP.TC ---
Today's Communication/Plan
-
Monitor vital signs
see plan
Still with some abdominal discomfort, will see how patient does with full liquids
Continue antibiotics
Monitor bowel movements
Replete potassium
Assessment / Plan
Assessment / Plan
General: Well Developed, Well Nourished, No Apparent Distress, Comfortable and Conversant
HEENT: NormoCephalic, Moist mucous membranes
Respiratory: Clear and Non Labored Respirations
Cardiac: S1/S2, Regular Rhythm and Murmur
GI: Soft, Non Tender, Non Distended and Normal Bowel Sounds
Musculoskeletal: No Edema
Neuro: Awake, Alert
Psych: Calm and Intact Judgment/Insight
sepsis 2/2 acute diverticulitis
#associated TME and acute ambulatory dysfunction
Abd/Pelvis CT: Mild acute sigmoid diverticulitis. No CT evidence for perforation or pericolonic abscess.
Continue with IV Zosyn
Now on fulls, will advance for dinner if tolerates
stopped bicarb drip
Colorectal surgery signed off
Follow fever curve
Blood culture NGTD
Still with some loose bowel movements, if persistent will need further sampling. Currently feels secondary to diverticulitis
Metabolic acidosis
Resolved
Monitor
Hypokalemia
Replete
essential hypertension
- continue losartan and metoprolol
hyperlipidemia
- continue ezetimibe
polymyalgia rheumatica
- hold azathioprine
On low-dose p.o. prednisone
Mild LFT elevation
Monitor
History of mitral regurgitation
Monitor
Hx lumbar laminectomy
- continue gabapentin and duloxetine
Code status: full code
DVT prophylaxis: SCDs, Lovenox
Anticipated Discharge: 24 - 48 hours
Subjective/Interval History
-
Date of Service: November 19, 2024
some pain
Objective Data
-
Labs:
Laboratory Results
11/19/24
05:47
WBC 9.2
Hgb 11.9 L
Hct 36.0 L
Plt Count 230
Sodium 136
Potassium 3.3 L
Chloride 108 H
Carbon Dioxide 23
BUN 8
Creatinine 0.6
Glucose 88
Calcium 7.6 L
Total Bilirubin 0.6
AST 33
ALT 42 H
Alkaline Phosphatase 53
Vital Signs:
Vital Signs
Temp Pulse Resp BP Pulse Ox
98 F 79 18 127/75 99
11/19/24 08:06 11/19/24 08:06 11/19/24 08:06 11/19/24 08:06 11/19/24 09:00
I&O
11/18/24 11/19/24 11/20/24
06:59 06:59 06:59
Intake Total 1200 / 1200 1620 / 1620
Balance 1200 / 1200 1620 / 1620
[2024-11-19 11:41] VITALS: BP 132/74
[2024-11-19 16:02] VITALS: BP 128/69
[2024-11-19] MEDS: LOVENOX 40 MG SC (18:45)
[2024-11-19] MEDS: FLUSH (NSS) 1 FLUSH IV (20:58)
[2024-11-19] MEDS: NEURONTIN 300 MG PO (21:00)
[2024-11-19 23:40] VITALS: BP 137/61
[2024-11-20] MEDS: ZOSYN 100 IV ×2 (03:51→10:12)
[2024-11-20 07:01] LABS: % Basophils 0.3 % (0-2); % Eosinophils 4.3 % (0-6); % Immature Granulocytes 0.5 % (0-0.5); % Lymphocytes 17.9 % (20.5-51.1); % Monocytes 10.8 % (1.7-9.3); % Neutrophils 66.2 % (42.2-75.2); Absolute Eosinophils 0.3 10^3/uL (0-0.7); Absolute Lymphocytes 1.1 10^3/uL (1.2-3.4); Absolute Monocytes 0.7 10^3/uL (0.1-0.6); Absolute Neutrophils 4.2 10^3/uL (1.4-6.5); Hematocrit 39.3 % (37.0-47.0); Hemoglobin 12.6 g/dL (12.0-16.0); Mean Corp Hgb Conc. 32.1 g/dL (33.0-37.0); Mean Corpuscular Hgb 27.6 pg (27.0-31.0); Nucleated Red Blood Cells % 0 %; Platelet Count 230 10^3/uL (130-400); Red Blood Cell Count 4.57 10^6/uL (4.20-5.40); Red Cell Dist. Width 13.2 % (11.5-14.5); White Blood Cell Count 6.3 10^3/uL (4.8-10.8)
[2024-11-20 07:21] VITALS: BP 160/77
[2024-11-20 07:30] LABS: ALT (SGPT) 40 U/L (0-35); AST (SGOT) 32 U/L (14-36); Albumin 3.1 g/dl (3.5-5.0); Alkaline Phosphatase 52 U/L (38-126); Blood Urea Nitrogen 7 mg/dl (7-17); Carbon Dioxide 23 mmol/L (22-30); Chloride 108 mmol/L (98-107); Estimated Creatinine Clearance 62 ml/min; Glucose 101 mg/dl (70-99); Potassium 3.5 mmol/L (3.5-5.1); Sodium 137 mmol/L (135-145); Total Bilirubin 0.6 mg/dl (0.2-1.3); Total Protein 5.9 g/dl (6.3-8.2); eGFR > 60.00
--- NOTE | 2024-11-20 07:30 | W.PN.HOSP.TC ---
Today's Communication/Plan
-
diet advanced to low residue
IV abx transitioned to PO Augmentin
Probiotic
Likely discharge tomorrow if remains stable/cont to improve/tolerating diet
Assessment / Plan
Assessment / Plan
Physical Exam
General: No acute distress, appears comfortable at this time.
HEENT: NormoCephalic, Moist mucous membranes
Respiratory: Clear and Non Labored Respirations
Cardiac: S1/S2, Regular Rhythm and Murmur
GI: Soft, mild Tenderness, Non Distended and Normal Bowel Sounds
Musculoskeletal: No Edema
Neuro: AOx3 awake alert conversant
Psych: Calm and Intact Judgment/Insight
79F HTN HLD PMR MR lumbar laminectomy here for Diverticulitis.
sepsis 2/2 acute diverticulitis
#associated TME and acute ambulatory dysfunction
Abd/Pelvis CT: Mild acute sigmoid diverticulitis. No CT evidence for perforation or pericolonic abscess.
treated w/ IV Zosyn switched to PO Augmentin with clinical improvement.
tolerated full liquid diet, advanced to low residue
Colorectal surgery eval appreciated
Follow fever curve
Blood culture NGTD
Metabolic acidosis
Resolved
completed bicarb drip
Hypokalemia
monitor and replete as necesary
essential hypertension
- continue losartan and metoprolol
hyperlipidemia
- continue ezetimibe
polymyalgia rheumatica
hold azathioprine
On low-dose p.o. prednisone, cont
Mild LFT elevation
History of mitral regurgitation
Monitor
Hx lumbar laminectomy
- continue gabapentin and duloxetine
PT appreciated home health
Code status: full code
DVT prophylaxis: SCDs, Lovenox
I spent a total of 40 minutes with the patient or on the floor. More than 50% of this time involved counseling and coordination of care.
Anticipated Discharge: Within 24 hours
Subjective/Interval History
-
Date of Service: November 20, 2024
Tolerating liquid diet. Reports improvement in abd pain.
Objective Data
-
Labs:
Laboratory Results
11/20/24
06:50
WBC 6.3
Hgb 12.6
Hct 39.3
Plt Count 230
Sodium Pending
Potassium Pending
Chloride Pending
Carbon Dioxide Pending
BUN Pending
Creatinine Pending
Glucose Pending
Calcium Pending
Total Bilirubin Pending
AST Pending
ALT Pending
Alkaline Phosphatase Pending
Vital Signs:
Vital Signs
Temp Pulse Resp BP Pulse Ox
98.4 F 69 18 137/61 97
11/19/24 23:40 11/19/24 23:40 11/19/24 23:40 11/19/24 23:40 11/19/24 23:40
I&O
11/19/24 11/20/24 11/21/24
06:59 06:59 06:59
Intake Total 1620 / 1620
Balance 1620 / 1620
[2024-11-20] MEDS: DELTASONE 3 MG PO (08:53)
[2024-11-20] MEDS: ZETIA 10 MG PO (08:53)
[2024-11-20] MEDS: COZAAR 100 MG PO (08:53)
[2024-11-20] MEDS: CYMBALTA DELAYED RELEASE 30 MG PO (08:53)
[2024-11-20] MEDS: OSCAL 500 + D 500 MG PO (08:53)
[2024-11-20] MEDS: TOPROL XL 50 MG PO (08:54)
[2024-11-20 12:29] VITALS: BP 148/63; PULSE 67; O2SAT 98
[2024-11-20] MEDS: AUGMENTIN 875 MG/125 MG 1 TABLET PO ×2 (16:08→23:38)
[2024-11-20 16:28] VITALS: BP 155/74
[2024-11-20] MEDS: LOVENOX 40 MG SC (17:12)
--- NOTE | 2024-11-20 17:35 | CM ---
Advancing diet.
Spoke with pt at bedside.
She said she will be dc tomorrow.
Offered VN she declined need.
Her will drive her home.
IMM reviewed IMM signed and copy on chart.
PLAN Home no needs
[2024-11-20] MEDS: NEURONTIN 300 MG PO (20:05)
[2024-11-20] MEDS: FLORASTOR 250 MG PO (20:06)
[2024-11-20 23:06] VITALS: BP 146/82
[2024-11-21 06:18] LABS: Hematocrit 37.7 % (37.0-47.0); Hemoglobin 12.7 g/dL (12.0-16.0); Mean Corp Hgb Conc. 33.7 g/dL (33.0-37.0); Mean Corpuscular Hgb 27.6 pg (27.0-31.0); Mean Platelet Volume 9.6 fL (7.4-10.4); Platelet Count 276 10^3/uL (130-400); Red Cell Dist. Width 13.1 % (11.5-14.5); White Blood Cell Count 6.9 10^3/uL (4.8-10.8)
[2024-11-21 06:36] LABS: Blood Urea Nitrogen 8 mg/dl (7-17); Calcium 8.6 mg/dl (8.4-10.2); Carbon Dioxide 27 mmol/L (22-30); Chloride 105 mmol/L (98-107); Estimated Creatinine Clearance 62 ml/min; Glucose 99 mg/dl (70-99); Magnesium 1.8 mg/dl (1.6-2.3); Phosphorus 3.5 mg/dl (2.5-4.5); Potassium 3.5 mmol/L (3.5-5.1); Sodium 138 mmol/L (135-145); eGFR > 60.00
--- NOTE | 2024-11-21 06:55 | W.PN.HOSP.TC ---
Addendum entered and electronically signed by Ayana Kelly MD 11/21/24 14:48:
Patient, symptomatically improved, declined home services.
Addendum entered and electronically signed by Ayana eKlly MD 11/21/24 14:36:
Correction to below:
planned for total 10 days abx 11/16/24-11/25/24
Original Note:
Today's Communication/Plan
-
discharge
Assessment / Plan
Assessment / Plan
Physical Exam
General: No acute distress, appears comfortable at this time.
HEENT: NormoCephalic, Moist mucous membranes
Respiratory: Clear and Non Labored Respirations
Cardiac: S1/S2, Regular Rhythm and Murmur
GI: Soft, nontender, Non Distended and Normal Bowel Sounds
Musculoskeletal: No Edema
Neuro: AOx3 awake alert conversant
Psych: Calm and Intact Judgment/Insight
79F HTN HLD PMR MR lumbar laminectomy here for Diverticulitis.
sepsis 2/2 acute diverticulitis
#associated TME and acute ambulatory dysfunction
Abd/Pelvis CT: Mild acute sigmoid diverticulitis. No CT evidence for perforation or pericolonic abscess.
treated w/ IV Zosyn switched to PO Augmentin with clinical improvement, tolerating well, planned for total 10 days abx 12/14/24-12/26/24
Tolerating low residue diet
Colorectal surgery eval appreciated
consistently afebrile since 11/17/24
Blood culture NGTD
Metabolic acidosis
Resolved
completed bicarb drip
Hypokalemia
monitor and replete as necesary
essential hypertension
- continue losartan and metoprolol
hyperlipidemia
- continue ezetimibe
polymyalgia rheumatica
hold azathioprine, resume following completion abx regimen as above
On low-dose p.o. prednisone, cont
Mild LFT elevation resolving
History of mitral regurgitation
Monitor
Hx lumbar laminectomy
- continue gabapentin and duloxetine
PT/OT appreciated home health
Code status: full code
DVT prophylaxis: SCDs, Lovenox
Medically stable for discharge home with home services and outpatient follow up recommendations.
Total Time Preparing Discharge __40 minutes including examination of the patient, summary of the hospital stay, instructions for continuing care to all relevant caregivers; and preparation of discharge records, prescriptions, and referral
forms if necessary.
Anticipated Discharge: Today
Subjective/Interval History
-
Date of Service: November 21, 2024
Seen and examined at bedside in no acute distress resting comfortably in bed. reports feeling well, abd pain and diarrhea resolved. Denies new acute issues. Looking forward to going home.
Objective Data
-
Labs:
Laboratory Results
11/21/24
05:24
WBC 6.9
Hgb 12.7
Hct 37.7
Plt Count 276
Sodium 138
Potassium 3.5
Chloride 105
Carbon Dioxide 27
BUN 8
Creatinine 0.6
Glucose 99
Calcium 8.6
Vital Signs:
Vital Signs
Temp Pulse Resp BP Pulse Ox
98.7 F 73 16 146/82 94
11/20/24 23:06 11/20/24 23:06 11/20/24 23:06 11/20/24 23:06 11/20/24 23:06
I&O
11/19/24 11/20/24 11/21/24
06:59 06:59 06:59
Intake Total 1620 / 1620 780 / 780
Balance 1620 / 1620 780 / 780
[2024-11-21 07:55] VITALS: BP 131/75
[2024-11-21] MEDS: ZETIA 10 MG PO (09:19)
[2024-11-21] MEDS: AUGMENTIN 875 MG/125 MG 1 TABLET PO (09:19)
[2024-11-21] MEDS: TOPROL XL 50 MG PO (09:19)
[2024-11-21] MEDS: OSCAL 500 + D 500 MG PO (09:20)
[2024-11-21] MEDS: CYMBALTA DELAYED RELEASE 30 MG PO (09:20)
[2024-11-21] MEDS: DELTASONE 3 MG PO (09:20)
[2024-11-21] MEDS: FLORASTOR 250 MG PO (09:21)
[2024-11-21] MEDS: COZAAR 100 MG PO (09:21)
[2024-11-21 09:38] VITALS: BP 144/76; BP 162/75; PULSE 86; O2SAT 95
--- NOTE | 2024-11-21 14:46 | W.DCSUMMARY ---
Discharge Summary
Discharge Data
Date of Admission: 11/16/24
Date of Discharge: 11/21/24
-
Pending Results: Yes (official culture results)
Hospital Course
79F HTN HLD PMR MR lumbar laminectomy here for Diverticulitis. Sepsis 2/2 acute diverticulitis, associated TME and acute ambulatory dysfunction. Abd/Pelvis CT: Mild acute sigmoid diverticulitis. No CT evidence for perforation or pericolonic
abscess. Treated w/ IV Zosyn switched to PO Augmentin with clinical improvement, tolerated well, planned for total 10 days abx 11/16/24-11/25/24. Tolerating low residue diet. Colorectal surgery eval appreciated. Consistently afebrile since
11/17/24. Blood culture NGTD. Metabolic acidosis resolved, completed bicarb drip treatment. Hx polymyalgia rheumatica, home azathioprine held, recommended to resume following completion abx regimen as above. Home low-dose p.o. prednisone was
continued. Medically stable, patient was discharged home with outpatient follow up recommendations.
Discharge Plan
-
Patient Disposition: Home (Routine Discharge)
Discharge Diagnosis/Procedures: Diverticulitis
Hypertension
Hyperlipidemia
Polymyalgia Rheumatica
Condition: Fair
Diet: Low Residue
Additional Diets: Continue with Low residue diet for 1 day following discharge. Then advance as tolerated
Activity: As tolerated
Driving Restrictions: As prior to admission
Bathing Restrictions: None
Activity Restrictions/Additional Instructions:
Please follow up with primary care provider in 1 week of discharge.
Augmentin has been prescribed to continue through 11/25/24- to complete treatment of Diverticulitis.
Probiotic has been prescribed to promote gut health while on antibiotics as above. Ok to stop when off antibiotics. Probiotics are also available over the counter.
It is recommended that you hold your home medication azathioprine, a immunosuppressant, while you're on antibiotics. Ok to resume home Azathioprine 11/26/24 after completing antibiotics as above.
Please take medications as prescribed/recommended and follow up with primary care provider and/or other healthcare provider involved in your care for further adjustments to your medication regimen as necessary.
Instructions: Diverticulitis - Discharge instructions
Referrals:
Bernardo Rosales DO [Family Provider] - in one week
Prescriptions:
New
Saccharomyces boulardii 250 mg Capsule
250 mg PO BID Qty: 9 0RF
Rx Instructions:
11/26/23 last day for probiotic. Discontinue when off antibiotics
amoxicillin-pot clavulanate 875-125 mg Tablet
1 tab PO Q8 Qty: 13 0RF
Rx Instructions:
Continue Augmentin/antibiotic through 11/25/24, last day for antibiotic.
Continued
prednisone 1 mg Tablet
3 mg PO DAILY
gabapentin 300 mg Capsule
300 mg PO HS
losartan 100 mg Tablet
100 mg PO DAILY
ezetimibe 10 mg Tablet
10 mg PO DAILY
calcium carbonate-vitamin D3 [Calcium 600 + D(3)] 600 mg-10 mcg (400 unit) Tablet
1 tab PO DAILY
Prolia 60 mg/mL Syringe
60 mg SC [id number]
metoprolol succinate 50 mg Tablet Extended Release 24 Hr
50 mg PO DAILY
duloxetine 30 mg Capsule,Delayed Release(Dr/Ec)
30 mg PO DAILY
Held
azathioprine 50 mg Tablet
50 mg PO DAILY
Hold Instructions: Hold while on prescribed antibiotic/Augmentin regimen. Resume 11/26/24 after completing antibiotics.
Discharge Orders:
Discharge Patient (As Directed); Ordered 11/21/24
Ordered By: Ayana Kelly
Discharge Date and Time
Discharge Date/Time: 11/21/24 15:50
Print Language: COLOM[place]
[2024-11-21 15:32] VITALS: BP 131/73
--- NOTE | 2024-11-21 16:29 | CM ---
entered order for discharge.
Offered VN she declined need.
Her will drive her home.
PLAN Home no needs
== END 2024-11-21 15:50 | disposition home or self-care (01) | DRG 871 ==
LOC: 4 EAST ACU 21:49
PROVIDERS: Emergency Medicine; Internal Medicine; Nurse Practitioner Family; Physician Assistant; ADMITTING PHYSICIAN Internal Medicine; ATTENDING PHYSICIAN Internal Medicine; CONSULT PHYSICIAN Surgery; EMERGENCY PHYSICIAN Student in an Organized Health Care Education/Training Program; FAMILY PHYSICIAN Family Medicine
DX: A41.9 Sepsis, unspecified organism (principal); G92.8 Other toxic encephalopathy; K57.32 Diverticulitis of large intestine without perforation or abscess without bleeding; D84.821 Immunodeficiency due to drugs; E87.20 Acidosis, unspecified; R11.10 Vomiting, unspecified; E78.00 Pure hypercholesterolemia, unspecified; E87.6 Hypokalemia; I34.0 Nonrheumatic mitral (valve) insufficiency; I15.8 Other secondary hypertension; R79.89 Other specified abnormal findings of blood chemistry; M35.3 Polymyalgia rheumatica; R26.2 Difficulty in walking, not elsewhere classified; Z79.52 Long term (current) use of systemic steroids; Z79.69 Long term (current) use of other immunomodulators and immunosuppressants; Z11.52 Encounter for screening for COVID-19; Z90.49 Acquired absence of other specified parts of digestive tract; Z86.0100 Personal history of colon polyps, unspecified; Z88.8 Allergy status to other drugs, medicaments and biological substances; Z98.42 Cataract extraction status, left eye; Z98.41 Cataract extraction status, right eye
CPT/HCPCS: 70450; 71046; 74177; 80048; 80053; 82248; 83605; 83690; 83735; 84100; 84484; 85025; 85027; 87040; 87150; 87205; 87502; 87811; 93005; 96361; 96365; 97116; 97162; 97166; 97530; 97535; 99285; J7500; Q9967